=== PATIENT | male | born 2000 | race Caucasian/White ===

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

== ENCOUNTER 2023-10-15 22:25 | Emergency (ER) | payer BC, SELFPAY ==
--- NOTE | 2023-10-15 22:27 | ECG_ITS ---
SEE SCANNED COPY FOR CONFIRMED REPORT MTDD
[2023-10-15 22:28] VITALS: BP 143/87; PULSE 107; RESP 14; TEMP 36.3; O2SAT 100
[2023-10-15 22:32] VITALS: O2SAT 100
[2023-10-15 22:33] VITALS: PULSE 98
[2023-10-15 22:34] VITALS: O2SAT 100
--- NOTE | 2023-10-15 22:42 | ED.GENADULT ---
HPI - General Adult General Chief complaint: Shortness of Breath/Dyspnea Stated complaint: anxiety Time Seen by Provider: 10/15/23 22:36 History of Present Illness HPI narrative: This is a 23-year-old male with a history of anxiety presenting with difficulty breathing. Patient was sitting at his computer averaging photos were all the sudden he felt a squeezing in his chest and felt like he could not breathe. Patient says that this happens to him about once per day for the last year and half. He thinks that his asthma. He says that he had 1 asthma attack as a child and they prescribed him an inhaler. He has never had a hospital visit for asthma side of that has never been diagnosed with asthma by primary care physician. Patient states that he takes 1-2 puffs of marijuana per day to help him calm down. Patient denies any symptoms. Related Data Allergies Allergy/AdvReac Type Severity Reaction Status Date / Time No Known Allergies Allergy Verified 10/27/19 10:40 [facility] Past Medical History Medical History Anxiety Social History Social History Gender identity (if verbalized by the patient): Male Exam Narrative: APPEARANCE: Anxious appearing and with a slight tremor Head: atraumatic. EYES: EOMI, NOSE: Atraumatic NECK: Trachea midline RESPIRATORY: No increased rate of breathing, lungs are clear to auscultation with no wheezing CARDIOVASCULAR: RRR, ABDOMINAL: Non-distended MUSCULOSKELETAl: No obvious deformities NEURO: Alert. Moving 4/4 extremities SKIN:: Warm, dry. Normal color PSYCHIATRIC: Normal affect Course Vital Signs Vital signs: Vital Signs Temperature 97.4 F L 10/15/23 22:28 Pulse Rate 107 H 10/15/23 22:28 Respiratory Rate 14 10/15/23 22:28 Blood Pressure 143/87 H 10/15/23 22:28 Pulse Oximetry 100 10/15/23 22:28 Oxygen Delivery Room Air 10/15/23 22:28 Temperature 97.4 F L 10/15/23 22:28 Pulse Rate 98 10/15/23 22:33 Respiratory Rate 14 10/15/23 22:28 Blood Pressure 143/87 H 10/15/23 22:28 Pulse Oximetry 100 10/15/23 22:34 Oxygen Delivery Room Air 10/15/23 22:34 Medical Decision Making MDM Narrative Medical decision making narrative: -Course: 23-year-old male presenting with shortness of breath. Patient is anxious injury. He has no wheezing on exam. He is saturating well on room air. Patient believes he has an asthma diagnosis but sounds like he was prescribed asthma inhaler when he was young and assumed that he has asthma. He has never been diagnosed with asthma by primary care physician or shared services manager. Patient does have significant anxiety and uses marijuana several times a day to help calm down. Patient was given Ativan with complete resolution of his difficulty breathing. However now the patient says that he is having epigastric abdominal pain that he describes as a squeezing pain. He has had this many times in the past is typically relieved by getting a bowel movement. Patient treated with Maalox dicyclomine Toradol with improvement. Suspect gastritis or IBS. Patient discharged primary care follow-up. Given return precautions for difficulty breathing, fevers, abdominal pain. -DDX includes but is not limited to:Anxiety, Panic disorder, viral illness, pneumonia -Co-morbidities complicating care:anxiety, adhd -Independent interpretation of studies: 14.9 wbc count. no signs of infection. Likely stress rxn. rest work within acceptable limits. -Interventions: 1 mg ativan -Shared decision making / Disposition:discharged Vital Signs Vital Signs: Vital Signs Temperature 97.4 F L 10/15/23 22:28 Pulse Rate 107 H 10/15/23 22:28 Respiratory Rate 14 10/15/23 22:28 Blood Pressure 143/87 H 10/15/23 22:28 Pulse Oximetry 100 10/15/23 22:28 Oxygen Delivery Room Air 10/15/23 22:28 Temperature 97.4 F L 10/15/23 22:
[2023-10-15] MEDS: LORazepam INJ (*CRX) 2 MG/ML VIAL 1 MG IV PUSH (22:45)
[2023-10-15 23:18] LABS: Basophils Absolute Auto 0.1 K/mm3 (0.0-0.1); Basophils Percent Auto 0.7 % (0.2-1.2); Eosinophils Absolute Auto 0.1 K/mm3 (0-0.3); Eosinophils Percent Auto 0.8 % (0-4.4); Hematocrit 45.9 % (42.0-52.0); Hemoglobin 15.9 g/dL (14.0-18.0); Immature Granulocyte Absolute 0.08 K/mm3 (0.00-0.031); Immature Granulocyte Percent A 0.5 % (0-0.5); Lymphocytes Absolute Auto 4.36 K/mm3 (0.9-3.2); Lymphocytes Percent Auto 29.2 % (18.3-44.2); Mean Corpuscular HGB Conc 34.6 g/dl (32-36); Mean Corpuscular Hemoglobin 30.8 pg (26-34); Mean Corpuscular Volume 88.8 fl (80-100); Mean Platelet Volume 9.6 fl (7.4-10.4); Monocytes Absolute Auto 1.5 K/mm3 (0.1-0.6); Monocytes Percent Auto 9.7 % (2.6-8.5); Neutrophils Absolute Auto 8.8 K/mm3 (1.3-6.7); Neutrophils Percent Auto 59.1 % (45.5-73.1); Platelet Count Result 461 k/mm3 (150-375); Red Blood Count 5.17 M/mm3 (4.6-6.20); Red Cell Distribution Width 12.2 % (11.5-14.5); White Blood Count 14.9 K/mm3 (4.5-10.0)
[2023-10-15 23:25] LABS: Alanine Aminotransferase 62 U/L (6-50); Albumin Level 4.9 g/dL (3.5-5.1); Alkaline Phosphatase 97 U/L (38-126); Anion Gap 8 mmol/L (4-12); Aspartate Amino Transferase 56 U/L (17-59); Bilirubin,Total 0.7 mg/dL (0.2-1.3); Blood Urea Nitrogen 15 mg/dL (9-20); Calcium 9.8 mg/dL (8.4-10.2); Carbon Dioxide 29 mmol/L (22-30); Chloride 102 mmol/L (98-107); Estimated CRCL calculation 112 ml/min; Estimated Glomerular Filt Rate > 60; Glucose 99 mg/dL (65-110); Lipase 51 U/L (23-300); Sodium 139 mmol/L (137-145)
[2023-10-15] MEDS: DICYCLOMINE HCL INJ 20 MG/2 ML VIAL IM (23:41)
[2023-10-15] MEDS: MAG HYDROX/AL HYDROX/SIMETH 30 ML UDC PO (23:41)
[2023-10-15] MEDS: KETOROLAC 15 MG/ML VIAL (*BKC) IV PUSH (23:43)
[2023-10-16 00:32] VITALS: BP 115/63; PULSE 96; RESP 15; O2SAT 99
== END 2023-10-16 00:37 | disposition home or self-care (01) ==
PROVIDERS: Emergency Provider Emergency Medicine
DX: F41.9 Anxiety disorder, unspecified (principal); R10.13 Epigastric pain; R94.31 Abnormal electrocardiogram [ECG] [EKG]
CPT/HCPCS: 36415; 80053; 83690; 85025; 93005; 96372; 96374; 96375; 99284; A9270; J0500; J1885; J2060

== ENCOUNTER 2024-08-05 08:58 | Emergency (ER) | payer BC, SELFPAY ==
--- NOTE | ~2024-08-05 | XR_ITS ---
EXAMINATION: XR chest 2V DATE: 08/05/2024 09:42 INDICATION: Shortness of breath. TECHNIQUE: Frontal and lateral views of the chest were obtained. COMPARISON: None. FINDINGS: Calcified right lung nodules and calcified right hilar lymph nodes are consistent with old granulomatous disease. No pleural effusion or pneumothorax. The heart size is normal. IMPRESSION: 1. No acute cardiopulmonary disease. Reviewed, dictated and finalized at [facility]NER
[2024-08-05 09:00] VITALS: BP 131/80; PULSE 75; RESP 20; TEMP 36.6; O2SAT 97
--- NOTE | 2024-08-05 09:07 | ECG_ITS ---
Test Date: 2024-08-05 09:18:38 Measurements Intervals [place] Rate: 76 P: 51 AR: 150 QRS: 0 QRSD: 97 T: 5 QT: 379 QTc: 428 Interpretive Statements SINUS RHYTHM MINIMAL Q WAVES- HIGH LATERAL LEADS BORDERLINE T WAVE ABNORMALITY- INFERIOR LEADS BASELINE ARTIFACT- I, III, AVR, AVL, AVF, V1 BORDERLINE ECG No previous ECG available for comparison Electronically Signed On 08-05-2024 10:25:27 RELOCATION COUNSELOR by David Rodriguez D.O.
--- NOTE | 2024-08-05 09:21 | ED_ITS ---
HPI - SOB/Dyspnea General Chief Complaint: Shortness of Breath/Dyspnea Stated Complaint: CONSTRICTED BREATHING Time Seen by Provider: 08/05/24 09:20 Source: patient History of Present Illness HPI Narrative: 24 years old white male came to the ED complaining of shortness of breath and chest pain started this morning while at rest. Patient had similar symptoms 3 months ago and was told secondary to anxiety. Patient is healthy otherwise does not take medicine at home, does not smoke or drink or use drugs. From patient's symptom recovered on arrival to the ED. Currently is asymptomatic. He report a lot of stress Related Data Allergies Allergy/AdvReac Type Severity Reaction Status Date / Time No Known Allergies Allergy Verified 08/05/24 09:06 Review of Systems 2 Review of Systems: All systems reviewed & are unremarkable except as noted in HPI and below PMFSH Past Medical History Medical History Anxiety Social History Social History Gender identity (if verbalized by the patient): Male Exam 2 Narrative: General appearance: Well-developed, well-nourished Skin: Normal color Head: Normocephalic, nontraumatic Eyes: Clear conjunctiva ENT: Oropharynx normal, ears normal, nose normal Neck: Supple, nontender Chest and respiratory: Airway patent, no respiratory distress, no accessory muscle use Heart: Regular rate/rhythm Abdomen: Soft, nontender, no organomegaly, quiet bowel sounds Vascular: Normal peripheral pulses, normal capillary refill. Musculoskeletal: Normal range of motion, nontender back Neurologic: Alert and oriented ?3, CLEANING MACHINE OPERATOR is normal as tested, no gross motor deficit Course Vital Signs Vital signs: Vital Signs Temperature 36.6 C 08/05/24 09:00 Pulse Rate 75 08/05/24 09:00 Respiratory Rate 20 08/05/24 09:00 Blood Pressure 131/80 08/05/24 09:00 Pulse Oximetry 97 08/05/24 09:00 Oxygen Delivery Room Air 08/05/24 09:00 Temperature 36.6 C 08/05/24 09:00 Pulse Rate 77 08/05/24 10:07 Respiratory Rate 16 08/05/24 10:07 Blood Pressure 131/80 08/05/24 09:00 Pulse Oximetry 96 08/05/24 10:07 Oxygen Delivery Room Air 08/05/24 10:07 MDM - SOB/Dyspnea MDM Narrative Medical decision making narrative: Patient presents with chest pain Vital signs are stable Physical examination is unremarkable Anxiety like symptoms, chest wall pain, pleurisy, pneumonia less likely pulmonary embolism, less likely coronary artery disease Blood workup today includes CBC, CMP, troponin, D-dimer showed no significant abnormality Chest x-ray showed no acute abnormality, EKG on arrival showed normal sinus rhythm Discharged home to follow up with family physician for anxiety like symptoms The pt was discharged to home.the pt,s condition upon discharge was fair,education was provided to the pt in reference to the final impression,discharge study results,treatment,prognosis and need for follow up . Differential Diagnosis Differential diagnosis: Likely other (As above) Medical Records Attestation: I reviewed the patient's medical records. Lab Data Attestation: I reviewed the patient's lab results. 08/05/24 09:32 08/05/24 09:32 Labs: Lab Results 08/05/24 08/05/24 Range/Units 09:32 09:43 WBC 12.7 H (4.5-10.0) K/mm3 RBC 5.31 (4.6-6.20) M/mm3 Hgb 15.8 (14.0-18.0) g/dL Hct 47.5 (42.0-52.0) % MCV 89.5 (80-100) fl MCH 29.8 (26-34) pg MCHC 33.3 (32-36) g/dl RDW 12.2 (11.5-14.5) % Plt Count 416 H (150-375) k/mm3 MPV 9.5 (7.4-10.4) fl Immature Gran % (Auto) 0.6 H (0-0.5) % Neut % (Auto) 61.9 (45.5-73.1) % Lymph % (Auto) 26.1 (18.3-44.2) % [place] % (Auto) 9.1 H (2.6-8.5) % Eos % (Auto) 1.4 (0-4.4) % Baso % (Auto) 0.9 (0.2-1.2) % Lymph # (Auto) 3.31 H (0.9-3.2) K/mm3 [place] # (Auto) 1.2 H (0.1-0.6) K/mm3 Eos # (Auto) 0.2 (0-0.3) K/mm3 Baso # (Auto) 0.1 (0.0-0.1) K/mm3 Abs Immat Gran (auto) 0.07 H (0.00-0.031) K/mm3 Absolute Neuts (auto) 7.9 H (1.3-6.7) K/mm3 Absolute Nucleated RBC 0.000 (0.0-0.012) K/mm3 Nucleated RBC % 0.0 (0.0-0.2) % D-Dimer < 0.27 (<0.48) ug/mL Sodium 141 (137-145) mmol/L Potassium 4.0 (3.4-5.0) mmol/L Chloride 102 (98-107) mmol/L Carbon Dioxide 24 (22-30) mmol/L Anion Gap 15 H (4-12) mmol/L BUN 13 (9-20) mg/dL Creatinine 0.77 (0.7-1.3) mg/dL Estim Creat Clear Calc 173 ml/min Estimated GFR > 60 (59 - ) Glucose 140 H (65-110) mg/dL Calcium 9.1 (8.4-10.2) mg/dL Total Bilirubin 0.8 (0.2-1.3) mg/dL AST 53 (17-59) U/L ALT 65 H (6-50) U/L Alkaline Phosphatase 95 (38-126) U/L Total Protein 8.0 (6.3-8.2) g/dL Albumin 4.6 (3.5-5.1) g/dL Influenza A (RT-PCR) Pending Influenza B (RT-PCR) Pending RSV (RT-PCR) Pending SARS-CoV-2 RNA (RT-PCR) Pending Imaging Data Radiologist's impression: Impressions Chest X-Ray 08/05/24 09:44 IMPRESSION: 1. No acute cardiopulmonary disease. ECG Data EKG #1: Attestation: I personally reviewed and interpreted this ECG as follows: ECG completion date: 08/05/24 Interpretation: Normal sinus rhythm at 76 beats per minute, borderline T-wave abnormality inferior leads, minimal Q-waves high lateral leads, borderline EKG, no previous EKG available for comparison Discharge Plan Discharge Clinical Impression: Chest pain, Anxiety Patient Disposition: Home, Self-Care Condition: Improved Instructions: Chest Pain (ED), Anxiety (ED) Additional Instructions: Return if symptoms are worsening , call your family physician for appointment, take Tylenol as as needed for aches and pain, continue home medications. Patient Language: [place]ien Prescriptions: No Action famotidine [Pepcid] 20 mg tablet 20 mg PO BID 42 Days Qty: 84 0RF Follow-up/Referrals: Tim Hicks MD [Physician] - 08/07/24 UNKNOWN,DOCTOR [Primary Care Provider] -
[2024-08-05 09:49] LABS: Basophils Absolute Auto 0.1 K/mm3 (0.0-0.1); Basophils Percent Auto 0.9 % (0.2-1.2); Eosinophils Absolute Auto 0.2 K/mm3 (0-0.3); Eosinophils Percent Auto 1.4 % (0-4.4); Hematocrit 47.5 % (42.0-52.0); Hemoglobin 15.8 g/dL (14.0-18.0); Immature Granulocyte Absolute 0.07 K/mm3 (0.00-0.031); Immature Granulocyte Percent A 0.6 % (0-0.5); Lymphocytes Absolute Auto 3.31 K/mm3 (0.9-3.2); Lymphocytes Percent Auto 26.1 % (18.3-44.2); Mean Corpuscular HGB Conc 33.3 g/dl (32-36); Mean Corpuscular Hemoglobin 29.8 pg (26-34); Mean Corpuscular Volume 89.5 fl (80-100); Mean Platelet Volume 9.5 fl (7.4-10.4); Monocytes Absolute Auto 1.2 K/mm3 (0.1-0.6); Monocytes Percent Auto 9.1 % (2.6-8.5); Neutrophils Absolute Auto 7.9 K/mm3 (1.3-6.7); Neutrophils Percent Auto 61.9 % (45.5-73.1); Platelet Count Result 416 k/mm3 (150-375); Red Blood Count 5.31 M/mm3 (4.6-6.20); Red Cell Distribution Width 12.2 % (11.5-14.5); White Blood Count 12.7 K/mm3 (4.5-10.0)
[2024-08-05 09:59] LABS: Alanine Aminotransferase 65 U/L (6-50); Albumin Level 4.6 g/dL (3.5-5.1); Alkaline Phosphatase 95 U/L (38-126); Anion Gap 15 mmol/L (4-12); Aspartate Amino Transferase 53 U/L (17-59); Bilirubin,Total 0.8 mg/dL (0.2-1.3); Blood Urea Nitrogen 13 mg/dL (9-20); Calcium 9.1 mg/dL (8.4-10.2); Carbon Dioxide 24 mmol/L (22-30); Chloride 102 mmol/L (98-107); Estimated CRCL calculation 173 ml/min; Estimated Glomerular Filt Rate > 60; Glucose 140 mg/dL (65-110); Sodium 141 mmol/L (137-145)
[2024-08-05 10:07] VITALS: PULSE 77; RESP 16; O2SAT 96
[2024-08-05 10:13] LABS: D Dimer < 0.27 ug/mL (<0.48)
[2024-08-05 10:46] LABS: Influenza A QL RT-PCR Negative (Negative); Influenza B QL RT-PCR Negative (Negative); RSV RNA, RT-PCR Negative (Negative); SARS-CoV-2 RNA PCR Negative (Negative)
[2024-08-05 11:01] VITALS: BP 111/77; PULSE 78; RESP 18; O2SAT 98
== END 2024-08-05 11:02 | disposition home or self-care (01) ==
PROVIDERS: Emergency Provider Emergency Medicine
DX: R07.9 Chest pain, unspecified (principal); F41.9 Anxiety disorder, unspecified; Z20.822 Contact with and (suspected) exposure to COVID-19
CPT/HCPCS: 36415; 71046; 80053; 85025; 85380; 87637; 93005; 99284